=== PATIENT | female | born 1980 | race Caucasian/White ===

== ENCOUNTER 2016-08-09 11:55 | Emergency (ER) | payer SELFPAY ==
[~2016-08-09] VITALS: Ht 160 cm; Wt 58.2 kg
[~2016-08-09 11:55] MED LIST: NOCURR
[2016-08-09] MEDS ORDERED: SULFAMETHOX/TRIMETH DS 800-160 MG/TABLET PO ONE (13:15)
[2016-08-09] MEDS ORDERED: CEPHALEXIN MONOHYDRATE 500 MG CAPSULE PO ONE (13:15)
[2016-08-09] MEDS ORDERED: IBUPROFEN 600 MG TABLET PO ONE (13:15)
[2016-08-09 13:42] VITALS: BP 132/78
== END 2016-08-09 13:43 | disposition home or self-care (01) ==
LOC: EMS 11:56
DX: S60.561A Insect bite (nonvenomous) of right hand, initial encounter (principal); L08.9 Local infection of the skin and subcutaneous tissue, unspecified; F15.90 Other stimulant use, unspecified, uncomplicated; F17.200 Nicotine dependence, unspecified, uncomplicated; W57.XXXA Bitten or stung by nonvenomous insect and other nonvenomous arthropods, initial encounter; Y93.89 Activity, other specified; Y92.89 Other specified places as the place of occurrence of the external cause; Y99.8 Other external cause status
CPT/HCPCS: 99284